=== PATIENT | female | born 1995 | race Caucasian/White ===

== ENCOUNTER 2018-12-18 16:35 | Emergency (ER) | payer BC ==
[~2018-12-18] VITALS: Ht 170.2 cm; Wt 75.0 kg
[2018-12-18 16:43] VITALS: TEMP 99.8
[2018-12-18 17:24] VITALS: BP 133/79; PULSE 106
== END 2018-12-18 17:28 | disposition home or self-care (01) ==
LOC: COL.ER 16:35
DX: S06.0X0A Concussion without loss of consciousness, initial encounter (principal); S06.330A Contusion and laceration of cerebrum, unspecified, without loss of consciousness, initial encounter; Y04.8XXA Assault by other bodily force, initial encounter; Y92.410 Unspecified street and highway as the place of occurrence of the external cause